=== PATIENT | male | born 1980 | race Two or more races ===

== ENCOUNTER → 2017-12-09 | Emergency (ER) | payer OTHER ==
[~2017-12-09] VITALS: Ht 185.4 cm; Wt 86.2 kg
[~2017-12-09] MED LIST: ADDERALL 30 MG30 MG; XANAX XR0.5 MG PO
== END | disposition left against medical advice (07) ==
LOC: ER 03:07
DX: Z53.20 Procedure and treatment not carried out because of patient's decision for unspecified reasons (principal)

== ENCOUNTER 2017-12-11 11:46 | Emergency (ER) | payer OTHER ==
[~2017-12-11] VITALS: Ht 185.4 cm; Wt 85.7 kg
[~2017-12-11 11:46] MED LIST changes: -XANAX XR0.5 MG PO
[2017-12-11] MEDS ORDERED: XANAX XR0.5 MG PO (13:57)
== END 2017-12-11 14:35 | disposition home or self-care (01) ==
LOC: ER 11:46
DX: F41.9 Anxiety disorder, unspecified (principal); T43.625A Adverse effect of amphetamines, initial encounter; Y92.89 Other specified places as the place of occurrence of the external cause

== ENCOUNTER 2018-10-21 21:47 | Emergency (ER) | payer OTHER ==
[~2018-10-21] VITALS: Ht 185.4 cm; Wt 90.7 kg
[~2018-10-21 21:47] MED LIST changes: +XANAX XR0.5 MG PO
[2018-10-21] MEDS ORDERED: AMOXICILLI125 MG/5 M (22:11)
== END 2018-10-22 03:09 | disposition home or self-care (01) ==
LOC: ER 21:47
DX: R20.2 Paresthesia of skin (principal)

== ENCOUNTER 2018-10-22 13:37 | Outpatient (CLI) | payer OTHER ==
[~2018-10-22 13:37] MED LIST changes: +AMOXICILLI125 MG/5 M
== END 2018-10-22 14:04 | disposition home or self-care (01) ==
LOC: MRI 13:37
DX: R20.2 Paresthesia of skin (principal); G35 Multiple sclerosis
CPT/HCPCS: 70551